=== PATIENT | male | born 1965 | race Caucasian/White ===

== ENCOUNTER 2019-12-26 06:16 | Outpatient (REF) | payer BC, SELFPAY ==
[2019-12-26 15:18] LABS: COVID-19 Test Negative (Negative)
== END 2019-12-26 06:17 | disposition home or self-care (01) ==
LOC: HO.LAB 06:16
PROVIDERS: Visit Provider Internal Medicine
DX: Z20.828 Contact with and (suspected) exposure to other viral communicable diseases (principal)
CPT/HCPCS: 87635

== ENCOUNTER 2020-03-02 06:58 | Outpatient (REF) | payer BC, SELFPAY ==
[2020-03-04 11:15] LABS: SARS-COV-2 PCR UMBRL Not Detected
== END 2020-03-02 06:59 | disposition home or self-care (01) ==
LOC: HO.LAB 06:58
PROVIDERS: Visit Provider Internal Medicine
DX: Z20.828 Contact with and (suspected) exposure to other viral communicable diseases (principal)
CPT/HCPCS: C9803; U0003